=== PATIENT | female | born 1970 ===

== ENCOUNTER 2018-09-16 14:25 | Emergency (ER) | payer SELFPAY ==
[~2018-09-16] VITALS: Ht 152.4 cm; Wt 61.7 kg
[~2018-09-16 14:25] MED LIST: Prilosec20 MG PO
[2018-09-16] MEDS ORDERED: Flonase 0.05% N16 GM (15:50)
[2018-09-16] MEDS ORDERED: Sudogest30 MG PO (15:50)
== END 2018-09-16 15:55 | disposition home or self-care (01) ==
LOC: ER 14:25
DX: H65.93 Unspecified nonsuppurative otitis media, bilateral (principal); Z79.899 Other long term (current) drug therapy
CPT/HCPCS: 99282

== ENCOUNTER 2019-05-29 09:18 | Emergency (ER) | payer SELFPAY ==
[~2019-05-29] VITALS: Ht 152.4 cm; Wt 61.7 kg
[~2019-05-29 09:18] MED LIST changes: +Flonase 0.05% N16 GM; +Sudogest30 MG PO
[2019-05-29] MEDS ORDERED: Amoxicillin500 MG PO (10:23)
== END 2019-05-29 10:31 | disposition home or self-care (01) ==
LOC: ER 09:18
DX: I10 Essential (primary) hypertension (principal)
CPT/HCPCS: 99282

== ENCOUNTER 2020-04-02 16:15 | Emergency (ER) | payer OTHER ==
[~2020-04-02] VITALS: Ht 142.2 cm; Wt 65.8 kg
[~2020-04-02 16:15] MED LIST changes: +Amoxicillin500 MG PO
[2020-04-02 16:38] LABS: BASOPHILS ABSOLUTE AUTO 0.06 K/mm3 (0.00-0.23); BASOPHILS PERCENT AUTO 1 % (0-2); EOSINOPHILS ABSOLUTE AUTO 0.08 K/mm3 (0.00-0.68); EOSINOPHILS PERCENT AUTO 1 % (0-6); Hematocrit 40.2 % (33.0-51.0); Hemoglobin 13.5 g/dL (11.5-16.0); IMMATURE GRAN ABSOLUTE AUTO 0.02 K/mm3 (0.00-0.10); IMMATURE GRAN PERCENT AUTO 0 % (0-1); LYMPHOCYTES PERCENT AUTO 33 % (21-46); MONOCYTES ABSOLUTE AUTO 0.81 K/mm3 (0.16-1.47); MONOCYTES PERCENT AUTO 9 % (4-13); Mean Corpuscular HGB 31.3 pg (26.0-34.0); Mean Corpuscular HGB Conc 33.6 g/dL (31.5-36.5); Mean Corpuscular Volume 93 fL (80-100); Mean Platelet Volume 11.2 fL (9.1-12.4); NEUTROPHILS ABSOLUTE AUTO 5.44 K/mm3 (1.96-9.15); NEUTROPHILS PERCENT AUTO 57 % (41-73); Platelet Count 303 K/mm3 (150-400); RDW Coefficient Variation 11.8 % (11.7-14.2); RDW Standard Deviation 40.6 fL (35.1-46.3); Red Blood Cell Count 4.31 M/mm3 (3.80-5.20); White Blood Cell Count 9.51 K/mm3 (4.00-11.30)
[2020-04-02 16:57] LABS: Alanine Aminotransfer (ALT/SGP 33 U/L (12-78); Alk Phos 108 U/L (50-136); Anion Gap 5 mmol/L (6-16); Aspartate Aminotrans (AST/SGOT 22 U/L (12-37); Bilirubin, Total 0.3 mg/dL (0.1-1.0); Blood Urea Nitrogen 12 mg/dL (8-24); Bun/Creatinine Ratio 21.5 (12.0-20.0); CO2, Blood 27 mmol/L (21-32); Calcium, Blood 9.4 mg/dL (8.5-10.1); Chloride, Blood 108 mmol/L (98-108); Creatinine, Blood 0.56 mg/dL (0.40-1.00); Globulin, Blood 4.1 g/dL (2.2-4.0); Glomerular Filtration Rate >60 (60-); Glucose, Blood 113 mg/dL (70-99); Potassium, Blood 3.5 mmol/L (3.5-5.5); Sodium, Blood 140 mmol/L (136-145); Total Protein, Blood 8.1 g/dL (6.4-8.2)
[2020-04-02 17:06] LABS: Free Thyroxine 0.83 ng/dL (0.70-1.60); Troponin I <0.015 ng/mL (0.000-0.040)
== END 2020-04-02 17:48 | disposition home or self-care (01) ==
LOC: ER 16:15
PROVIDERS: Physician Assistant; Student in an Organized Health Care Education/Training Program
DX: R00.2 Palpitations (principal); R42 Dizziness and giddiness; R20.0 Anesthesia of skin
CPT/HCPCS: 36415; 80053; 84439; 84443; 84484; 85025; 93005; 93010; 99285-25

== ENCOUNTER 2020-05-12 12:40 | Emergency (ER) | payer OTHER ==
[~2020-05-12] VITALS: Ht 142.2 cm; Wt 57.6 kg
[~2020-05-12 12:40] MED LIST changes: +HYDCHL12.5 PO
[2020-05-12] MEDS ORDERED: CYCL10 PO (13:37)
== END 2020-05-12 13:49 | disposition home or self-care (01) ==
LOC: ER 12:40
DX: M54.2 Cervicalgia (principal); H92.01 Otalgia, right ear; E03.9 Hypothyroidism, unspecified; F41.9 Anxiety disorder, unspecified
CPT/HCPCS: 99283

== ENCOUNTER → 2021-04-25 | Outpatient (CLI) | payer OTHER ==
[~2021-04-25] MED LIST changes: +CYCL10 PO
[2021-04-28 15:11] LABS: HPV 16 Negative (Negative); HPV 18 Negative (Negative); HPV OTHER HR TYPES Negative (Negative)
== END | disposition home or self-care (01) ==
LOC: LAB 07:20 → LAB SHORT 07:20
PROVIDERS: Student in an Organized Health Care Education/Training Program
DX: Z12.4 Encounter for screening for malignant neoplasm of cervix (principal)
CPT/HCPCS: 87624; G0145

== ENCOUNTER → 2024-08-13 | Outpatient (CLI) | payer OTHER ==
[2024-08-14 01:08] LABS: Campylobacter Sp Not Detected (NOT DETECT); E. Coli O157 Not Detected (NOT DETECT); Enteroaggregative E. coli-EAEC Not Detected (NOT DETECT); Enteropathogenic E. coli-EPEC Not Detected (NOT DETECT); Enterotoxigenic E. coli-ETEC Not Detected (NOT DETECT); Plesiomonas Shigelloides Not Detected (NOT DETECT); Salmonella Sp Not Detected (NOT DETECT); Shiga Toxin-prod E. coli-STEC Not Detected (NOT DETECT); Shigella/Enteroin E. coli-EIEC Not Detected (NOT DETECT); Vibrio Cholerae Not Detected (NOT DETECT); Vibrio Sp Not Detected (NOT DETECT); Yersinia Enterocolitica Not Detected (NOT DETECT)
[2024-08-14 01:09] LABS: Adenovirus F 40/41 Not Detected (NOT DETECT); Astrovirus Not Detected (NOT DETECT); Cryptosporidium Not Detected (NOT DETECT); Cyclospora Cayetanensis Not Detected (NOT DETECT); Entamoeba Histolytica Not Detected (NOT DETECT); Giardia Lamblia Not Detected (NOT DETECT); Norovirus GI/GII Detected (NOT DETECT); Rotavirus A Not Detected (NOT DETECT); Sapovirus Not Detected (NOT DETECT)
== END ==
LOC: LAB 19:23 → LAB SHORT 19:23
PROVIDERS: Chiropractor
DX: R19.7 Diarrhea, unspecified (principal)
CPT/HCPCS: 87507